=== PATIENT | male | born 1945 | race Caucasian/White ===

== ENCOUNTER → 2016-08-03 | Day surgery (SDC) | payer MEDICARE, OTHER ==
[~2016-08-03] MED LIST: AMARYL2 MG PO; B-12500 MCG PO; DIOVAN40 MG PO; FLOMAX0.4 M1 PO; INVOKANA300 MG PO; JANUMET XR 1001 EACH PO; LO-DOSE ASPIRIN81 M1 PO; MYRBETRIQ25 MG PO; NAMENDA XR28 MG PO; NEURONTIN300 MG PO; ROSUVASTATIN CA20 MG PO; SERTRALINE HCL25 MG PO; VITAMIN D31000 UNI1 PO
--- NOTE | ~2016-08-03 | OR ---
Unit #: [id number] #: [id number] Patient: SARTHAK MICHAUD [id number] [address] [place], [place] [address] [id number] MR#: [id number] NAME: SARTHAK MICHAUD ROOM: Date of Procedure: 08/03/2016 Admission Date: 08/03/2016 Surgeon: Solomon Edwards M.D. : 1945 Attending Physician: Solomon Edwards M.D. Primary Care Physician: Rosendo Lane D.O. OPERATIVE REPORT PREOPERATIVE DIAGNOSES 1. Screening colonoscopy. 2. History of hepatocellular carcinoma. POSTOPERATIVE DIAGNOSES 1. Screening colonoscopy. 2. History of hepatocellular carcinoma. PROCEDURE PERFORMED Colonoscopy to cecum. ANESTHESIA Monitored anesthesia care. FINDINGS The patient was found to have rare shallow sigmoid diverticula, mild internal hemorrhoids. SPECIMENS None. COMPLICATIONS None apparent. CONDITION The patient tolerated the procedure well. INDICATIONS FOR PROCEDURE The patient is a 70-year-old white male, who presents at this time for screening colonoscopy. He has a history of hepatocellular carcinoma. His last colonoscopy was 5 to 6 years ago. DESCRIPTION OF PROCEDURE After obtaining informed consent, the patient was brought to the endoscopy suite and after adequate monitored anesthesia care, had the colonoscope placed through the anus and slowly advanced to the level of cecum without difficulty with the lumen always in view. The cecum was normal as was the ileocecal valve. The ascending colon was normal as was the hepatic flexure, transverse colon, splenic flexure, descending colon, and proximal sigmoid colon. In the mid sigmoid colon, there was an occasional shallow diverticulum seen. The rectosigmoid and rectum were all within normal Unit #: [id number] #: [id number] Patient: SARTHAK MICHAUD limits. On retroflexing in the rectum to the anorectal junction, there were some [id number] internal hemorrhoids. The scope was removed without difficulty. The patient tolerated the procedure well and went from the endoscopy suite to the recovery area in stable condition. RECOMMENDATIONS High-fiber diet, lots of liquids, tucks or wipes p.r.n. Follow up as needed. Diverticular sheet given. Dictated by... Solomon Ewdards M.D. JPG/modl TD: 08/03/2016 11:48 JOB #: [id number] CC: Dariel Wilkinson M.D. [facility] OPERATIVE REPORT Page 1 of 1 X Solomon Edwards MD PROCEDURE OPERATIVE NOTE
== END | disposition home or self-care (01) ==
LOC: COPS 09:22
DX: Z12.11 Encounter for screening for malignant neoplasm of colon (principal); K57.30 Diverticulosis of large intestine without perforation or abscess without bleeding; K64.8 Other hemorrhoids; I25.2 Old myocardial infarction; E11.9 Type 2 diabetes mellitus without complications; N40.0 Benign prostatic hyperplasia without lower urinary tract symptoms; I73.9 Peripheral vascular disease, unspecified; E78.5 Hyperlipidemia, unspecified; I10 Essential (primary) hypertension; G47.33 Obstructive sleep apnea (adult) (pediatric); M19.90 Unspecified osteoarthritis, unspecified site; Z85.05 Personal history of malignant neoplasm of liver; Z79.82 Long term (current) use of aspirin; Z79.899 Other long term (current) drug therapy; Z79.52 Long term (current) use of systemic steroids
CPT/HCPCS: 82947